=== PATIENT | female | born 1955 | race Caucasian/White ===

== ENCOUNTER → 2023-12-06 09:40 | Outpatient (REF) | payer MEDICARE, BC, SELFPAY | LOC: RAD 09:40 | PROVIDERS: ATTENDING PHYSICIAN Internal Medicine Rheumatology; FAMILY PHYSICIAN Nurse Practitioner Adult Health | DX: M81.0 Age-related osteoporosis without current pathological fracture (principal); Z78.0 Asymptomatic menopausal state; Z87.891 Personal history of nicotine dependence; F17.200 Nicotine dependence, unspecified, uncomplicated; R91.8 Other nonspecific abnormal finding of lung field; F17.210 Nicotine dependence, cigarettes, uncomplicated | CPT/HCPCS: 71271; 77080 ==

== ENCOUNTER → 2024-08-05 11:32 | Outpatient (REF) | payer MEDICARE, BC, SELFPAY | LOC: WDC 11:32 | PROVIDERS: ATTENDING PHYSICIAN Nurse Practitioner Adult Health | DX: Z12.31 Encounter for screening mammogram for malignant neoplasm of breast (principal) | CPT/HCPCS: 77063; 77067 ==

== ENCOUNTER → 2025-01-01 13:39 | Outpatient (REF) | payer MEDICARE, BC, SELFPAY | LOC: HWRAD 13:39 | PROVIDERS: ATTENDING PHYSICIAN Internal Medicine Critical Care Medicine; FAMILY PHYSICIAN Nurse Practitioner Adult Health | DX: F17.210 Nicotine dependence, cigarettes, uncomplicated (principal) | CPT/HCPCS: 71271 ==

== ENCOUNTER → 2025-06-19 09:48 | Outpatient (REF) | payer MEDICARE, BC, SELFPAY | LOC: RAD 09:48 | PROVIDERS: ATTENDING PHYSICIAN Internal Medicine Critical Care Medicine; FAMILY PHYSICIAN Nurse Practitioner Adult Health | DX: R91.8 Other nonspecific abnormal finding of lung field (principal) | CPT/HCPCS: 71250 ==